=== PATIENT | female | born 1980 | race Caucasian/White ===

== ENCOUNTER 2017-11-14 16:25 | Outpatient (CLI) | payer OTHER | END 2017-11-14 16:26 | disposition home or self-care (01) | LOC: LAB 16:25 | PROVIDERS: ATTEND Obstetrics & Gynecology | DX: Z32.01 Encounter for pregnancy test, result positive (principal) | CPT/HCPCS: 36415; 84702 ==

== ENCOUNTER 2022-01-15 11:41 | Outpatient (CLI) | payer BC | END 2022-01-15 11:42 | disposition home or self-care (01) | LOC: LAB 11:41 | PROVIDERS: ATTEND Nurse Practitioner Obstetrics & Gynecology | DX: N91.2 Amenorrhea, unspecified (principal) | CPT/HCPCS: 36415; 84702 ==

== ENCOUNTER 2022-03-09 13:02 | Outpatient (CLI) | payer BC ==
[2022-03-09 13:30] LABS: CHOL/HDL RATIO 2.9 (<4.4); CHOLESTEROL 205 mg/dL; HDL CHOLESTEROL 70 mg/dL; LDL CHOLESTEROL,CALCULATED 100 mg/dL; LDL/HDL RATIO 1.4 (<4.4); TRIGLYCERIDES 174 mg/dL; VLDL CHOLESTEROL 35 mg/dL
== END 2022-03-09 13:03 | disposition home or self-care (01) ==
LOC: LAB 13:02
PROVIDERS: ATTEND Obstetrics & Gynecology
DX: Z13.220 Encounter for screening for lipoid disorders (principal)
CPT/HCPCS: 36415; 80061; 83721

== ENCOUNTER 2022-06-18 08:00 | Outpatient (CLI) | payer BC ==
[2022-06-18 15:02] LABS: BILIRUBIN,URINE NEGATIVE (NEGATIVE); GLUCOSE, URINE (UA) NEGATIVE (NEGATIVE); KETONES,URINE (UA) NEGATIVE (NEGATIVE); LEUKOCYTE ESTERASE, URINE NEGATIVE (NEGATIVE); NITRITE,URINE NEGATIVE (NEGATIVE); OCCULT BLOOD,URINE NEGATIVE (NEGATIVE); PROTEIN,URINE NEGATIVE (NEGATIVE); UROBILINOGEN,URINE 0.2 (NORMAL) E.U./dL (NORMAL)
[2022-06-18 15:10] LABS: CLARITY,URINE CLEAR (CLEAR)
[2022-06-18 15:37] LABS: BACTERIA,URINE Rare /HPF (None Seen); RBC,URINE None Seen /HPF (0-5); SQUAMOUS EPITHELIAL CELL,UR RARE Squamous (<= Few); WBC,URINE 0-3 /HPF (0-5)
== END 2022-06-18 23:59 | disposition home or self-care (01) ==
LOC: LAB.WC 08:00
PROVIDERS: ATTEND Nurse Practitioner
DX: Z34.90 Encounter for supervision of normal pregnancy, unspecified, unspecified trimester (principal)
CPT/HCPCS: 81001; 87086

== ENCOUNTER 2022-06-28 12:53 | Outpatient (CLI) | payer BC ==
--- NOTE | 2022-06-28 15:15 | Ultrasound Report ---
PROCEDURE: OB First Trimester w/TV INDICATIONS: IRREGULAR MENSES OUTSIDE/PRIOR DATING DATA: Last menstrual period (LMP): 05/02/2022. LMP-based estimated date of delivery (ZOE): 02/06/2023. TECHNIQUE: Real-time scanning was performed of the fetus and maternal pelvic organs, with image documentation. Endovaginal scanning was also performed to better visualize the fetus and maternal ovaries. COMPARISON: None FINDINGS: [place]-rump length is 0.8 cm. No heart tones are detected. Ultrasound age of 6 weeks and 5 days. Cervix is closed. IMPRESSION: [place]-rump length of 0.8 cm. No heart tones are detected. Per SRU criteria, this is compatible with failure. Reviewed by: Estrada Diana MD on 06/28/2022 3:13 PM PDT Approved by: Estrada Diana MD on 06/28/2022 3:13 PM PDT Station ID: [id number]
== END 2022-06-28 12:54 | disposition home or self-care (01) ==
LOC: DI 12:53
PROVIDERS: ATTEND Obstetrics & Gynecology
DX: N92.6 Irregular menstruation, unspecified (principal)

== ENCOUNTER 2022-12-29 11:12 | Outpatient (CLI) | payer BC ==
[2022-12-29 11:42] LABS: % IRON SATURATION 2 % (20-50); ALBUMIN 4.3 g/dL (3.2-5.5); ALBUMIN/GLOBULIN RATIO 1.6 (1.0-2.2); ALKALINE PHOSPHATASE 89 IU/L (42-121); ALT ALANINE AMINOTRANSFERASE 15 IU/L (10-60); AST ASPARTATE AMINOTRANSFERASE 13 IU/L (10-42); BILIRUBIN,TOTAL 0.4 mg/dL (0.2-1.0); BUN - BLOOD UREA NITROGEN 10 mg/dL (6-20); CALCIUM 9.3 mg/dL (8.5-10.3); CARBON DIOXIDE - CO2 26 mmol/L (21-32); CHLORIDE 105 mmol/L (101-111); CHOLESTEROL 175 mg/dL; CREATININE 0.7 mg/dL (0.6-1.3); GFR - MDRD 93 (>89); GLUCOSE 97 mg/dL (74-104); IRON 12 ug/dL (50-212); POTASSIUM 4.2 mmol/L (3.5-4.5); SODIUM 137 mmol/L (135-145); TOTAL IRON BINDING CAPACITY 553 ug/dL (250-450); TRANSFERRIN 395 mg/dL (203-362); TRIGLYCERIDES 142 mg/dL (48-352); VLDL CHOLESTEROL 28 mg/dL
[2022-12-29 11:43] LABS: BASOPHILS # (AUTO) 0.1 10^3/uL (0.0-0.1); BASOPHILS % (AUTO) 0.9 %; EOSINOPHILS # (AUTO) 0.2 10^3/uL (0.0-0.7); EOSINOPHILS % (AUTO) 1.9 %; HCT - HEMATOCRIT 35.1 % (37.0-47.0); HGB - HEMOGLOBIN 10.4 g/dL (12.0-16.0); LYMPHOCYTES # (AUTO) 2.3 10^3/uL (1.5-3.5); LYMPHOCYTES % (AUTO) 26.5 %; MEAN CORPUSCULAR HEMOGLOBIN 23.3 pg (27.0-31.0); MEAN CORPUSCULAR HGB CONC 29.6 g/dL (32.0-36.0); MEAN CORPUSCULAR VOLUME 78.7 fL (81.0-99.0); MEAN PLATELET VOLUME 12.8 fL (7.9-10.8); MONOCYTES # (AUTO) 0.6 10^3/uL (0.0-1.0); MONOCYTES % (AUTO) 7.2 %; NEUTROPHILS # (AUTO) 5.5 10^3/uL (1.5-6.6); NEUTROPHILS % (AUTO) 63.3 %; PLT - PLATELET COUNT 325 10^3/uL (130-450); RED BLOOD COUNT 4.46 10^6/uL (4.20-5.40); RED CELL DISTRIBUTION WIDTH 15.5 % (12.0-15.0); WHITE BLOOD COUNT 8.6 x10^3/uL (4.8-10.8)
[2022-12-29 11:45] LABS: PARTIAL THROMBOPLASTIN TIME 31.4 secs (24.9-33.3)
[2022-12-29 11:50] LABS: INR 1.1 (0.8-1.2); PT - PROTHROMBIN TIME 11.9 secs (9.9-12.6)
[2022-12-29 11:57] LABS: THYROID STIMULATING HORMONE 1.94 uIU/mL (0.34-5.60)
[2022-12-29 12:10] LABS: ESTIMATED AVERAGE GLUCOSE 126 mg/dL (70-100)
[2022-12-30 00:02] LABS: CHOL/HDL RATIO 3.4 (<4.4); HDL CHOLESTEROL 52 mg/dL; LDL CHOLESTEROL,CALCULATED 95 mg/dL; LDL/HDL RATIO 1.8 (<4.4)
== END 2022-12-29 11:13 | disposition home or self-care (01) ==
LOC: LAB 11:12
PROVIDERS: ATTEND Surgery
DX: Z01.812 Encounter for preprocedural laboratory examination (principal); E63.9 Nutritional deficiency, unspecified; E51.9 Thiamine deficiency, unspecified; E46 Unspecified protein-calorie malnutrition
CPT/HCPCS: 36415; 80053; 80061; 82306; 82607; 82728; 82746; 83036; 83540; 83721; 84425; 84443; 84466; 84481; 85025; 85610; 85730

== ENCOUNTER 2023-02-01 14:20 | Outpatient (CLI) | payer BC ==
[2023-02-01] MEDS ORDERED: FERRIC GLUCONATE 125 MG in SODIUM CHLORIDE 0.9% 100ML 100 ML IV ONE (14:27)
[2023-02-01 16:33] VITALS: BP 129/72
== END 2023-02-01 16:25 | disposition home or self-care (01) ==
LOC: WFO 14:20
PROVIDERS: ATTEND Nurse Practitioner Obstetrics & Gynecology
DX: D50.9 Iron deficiency anemia, unspecified (principal)
CPT/HCPCS: 96365; J2916

== ENCOUNTER 2023-03-18 12:34 | Outpatient (CLI) | payer BC ==
[2023-03-18] MEDS ORDERED: FERRIC GLUCONATE 125 MG in SODIUM CHLORIDE 0.9% 100ML 100 ML IV ONE (13:19)
== END 2023-03-18 15:50 | disposition home or self-care (01) ==
LOC: WFO 12:34 → FBP 12:35 → WFO 15:50
PROVIDERS: ATTEND Nurse Practitioner Obstetrics & Gynecology
DX: O99.019 Anemia complicating pregnancy, unspecified trimester (principal); D50.9 Iron deficiency anemia, unspecified; Z3A.00 Weeks of gestation of pregnancy not specified
CPT/HCPCS: 96365; J2916

== ENCOUNTER 2023-07-16 10:43 | Emergency (ER) | payer BC ==
--- NOTE | 2023-07-16 11:40 | XRAY Report ---
PROCEDURE: Ankle 3+V LT INDICATIONS: fall/pain TECHNIQUE: 3 views of the ankle were acquired. COMPARISON: None. FINDINGS: Bones: No fractures or dislocations. Ankle mortise is normally aligned. No suspicious bony lesions . The talar dome demonstrates an unremarkable appearance. Plantar and Achilles calcaneal spurs are see n. Soft tissues: No tibiotalar joint effusion. Achilles tendon appears normal. IMPRESSION: No displaced fractures are seen on this plain film study. In this patient with a given history of trauma, please correlate with focal tenderness. If clinically appropriate, please consider a short-term follow-up plain films series versus a dedicated CT study. Reviewed by: Kieran Ordoñez MD on 07/16/2023 10:38 AM [facility] Approved by: Kieran Ordoñez MD on 07/16/2023 10:38 AM [facility] Station ID: [id number]
--- NOTE | 2023-07-16 11:43 | ED Physician Documentation ---
PD HPI MAJOR TRAUMA - Stated complaint Stated Complaint: GLF, SEIZURE, INJ - Chief complaint Chief Complaint: Trauma Hd/Nk - History obtained from History obtained from: Patient - Additional information Additional information: 43-year-old woman has a history of iron deficiency anemia and is on Ozempic for weight loss. She has been having some passing out episodes over the last 8 months or so which has been attributed to the iron deficiency anemia for which she is getting iron infusions. She was in her usual state of health today and coming down off her patio, slipped and twisted her left ankle. She landed in a sitting position and really did not hit her head but then sometime passed and she started to feel dizzy and passed out. Her , who is at the bedside, witnessed it and she had a brief episode of shaking without a postictal period. Now feeling okay other than the left ankle pain. PD PAST MEDICAL HISTORY - Past Medical History Past Medical History: No - Past Surgical History Past Surgical History: Yes /[employer]NA[employer]: section - Present Medications Home Medications: Ambulatory Orders Medication Instructions Recorded Confirmed Semaglutide [Ozempic] 2 mg SUBQ PRN 07/16/23 - Allergies Allergies/Adverse Reactions: Allergies Allergy/AdvReac Type Severity Reaction Status Date / Time No Known Drug Allergies Allergy Verified 02/01/23 14:34 - Social History Does the pt smoke?: No Smoking Status: Never smoker Does the pt drink ETOH?: No Does the pt have substance abuse?: No - Immunizations Immunizations are current?: Yes PD ED PE NORMAL - Vitals Vital signs reviewed: Yes - General General: Alert and oriented X 3, No acute distress - HEENT HEENT: PERRL, EOMI - Neck Neck: Supple, no meningeal sign, No bony TTP - Cardiac Cardiac: RRR, No murmur - Respiratory Respiratory: No respiratory distress, Clear bilaterally - Abdomen Abdomen: Non tender - Extremities Extremities: Other (Tender and swollen over the lateral malleolus of the left ankle without proximal fibular tenderness nor foot tenderness. No deformity.) - Neuro Neuro: Alert and oriented X 3, Normal speech Results - Vitals Vitals: Vital Signs - 24 hr 07/16/23 10:48 Temperature 36.4 C L Heart Rate 80 Respiratory 16 Rate Blood Pressure 157/77 H O2 Saturation 100 Oxygen O2 Source Room air - EKG (time done) 1203 EKG releavant findings:: EKG personally interpreted by author of this note. Relevant findings are: Rate: Rate (enter#) (66) Rhythm: NSR [place]: Normal Intervals: Normal MN. No: Prolonged QT, Wide QRS QRS: Normal Ischemia: Normal ST segments. No: ST elevation c/w ischemia, ST depression, T wave inversion - Rads (name of study) Three-view x-ray of the left ankle was negative. Relevant Findings:: Final report received, EMP independent interpretation of test PD Medical Decision Making - ED course ED course: She been having passing out episodes, the one today is consistent with a vagal episode with myoclonic jerking. The was concerned for seizure activity but it lasted only about 5 seconds without a postictal period. Given the passing out episodes, they may be associated with her iron deficiency anemia, but reasonable to check an EKG which she has not had done. The ankle x-ray looking okay and she is placed in [employer]irc[employer], she does not need crutches. An EKG was done given the recurrent syncope which was very normal. Prior to discharge she reconsidered and did need crutches. Departure - Departure Disposition: 01 Home, Self Care Clinical Impression: Vasovagal syncope Fall Qualifiers: Encounter type: initial encounter Qualified Code(s): W19.XXXA - Unspecified fall, initial encounter Left ankle sprain Qualifiers: Encounter type: initial encounter Involved ligament of ankle: anterior talofibular ligament Qualified Code(s): S93.492A - Sprain of other ligament of left ankle, initial encounter Condition: Good Record reviewed to determine appropriate education?: Yes Instructions: ED Sprain Ankle W X Ray, ED Near Syncope Vasovagal Comments: Tylenol and/or ibuprofen as needed for the ankle pain, ice and elevate as well. It is okay to walk and bear weight on it. Plan to see your doctor for repeat x-rays if not improved within the week. Return for new or worsening symptoms. You should also follow-up with your doctor regarding the fainting episode but the description is benign as far as a serious cause goes. Forms: PCP List
[2023-07-16 12:46] VITALS: BP 148/72; O2SAT 99
== END 2023-07-16 12:43 | disposition home or self-care (01) ==
LOC: ED 10:43
DX: R55 Syncope and collapse (principal); S93.492A Sprain of other ligament of left ankle, initial encounter; W01.0XXA Fall on same level from slipping, tripping and stumbling without subsequent striking against object, initial encounter; Y93.89 Activity, other specified; Y92.008 Other place in unspecified non-institutional (private) residence as the place of occurrence of the external cause; D50.9 Iron deficiency anemia, unspecified
CPT/HCPCS: 93005; 99283; 99284

== ENCOUNTER 2023-09-28 10:45 | Outpatient (CLI) | payer BC ==
[2023-09-28 11:42] VITALS: BP 127/61
[2023-09-28] MEDS: FERRIC GLUCONATE 125 MG in SODIUM CHLORIDE 0.9% 100ML 100 ML IV ONE (12:45)
== END 2023-09-28 14:07 | disposition home or self-care (01) ==
LOC: WFO 10:45 → FBP 10:48 → WFO 14:07
PROVIDERS: ATTEND Nurse Practitioner Obstetrics & Gynecology
DX: O99.019 Anemia complicating pregnancy, unspecified trimester (principal); D50.9 Iron deficiency anemia, unspecified; Z3A.00 Weeks of gestation of pregnancy not specified
CPT/HCPCS: 96365; J2916